=== PATIENT | male | born 1935 | race Caucasian/White ===

== ENCOUNTER 2018-09-09 17:23 | Emergency (ER) | payer MEDICARE, BC ==
[2018-09-09 17:33] VITALS: TEMP 98.3
[2018-09-09 18:28] LABS: BASOPHILS % (AUTO) 1 % (0-3); EOSINOPHILS % (AUTO) 2 % (0-9); HEMATOCRIT 46 % (39-53); HEMOGLOBIN 14.5 gm/dl (13.5-17.7); LYMPHOCYTES % (AUTO) 22.9 % (10-50); MEAN CORPUSCULAR HEMOGLOBIN 26.9 pg (27.0-32.0); MEAN CORPUSCULAR HGB CONC 31.7 gm/dl (32.0-36.0); MEAN CORPUSCULAR VOLUME 85 fL (80-100); MONOCYTES % (AUTO) 5.2 % (0-12); NEUTROPHILS % (AUTO) 69.2 % (37-80)
[2018-09-09 18:39] LABS: APPEARANCE,URINE Clear; BILIRUBIN,URINE NEGATIVE (NEGATIVE); COLOR,URINE Yellow; GLUCOSE, URINE (UA) NEGATIVE (NEGATIVE); KETONES,URINE NEGATIVE (NEGATIVE); LEUKOCYTE ESTERASE ,URINE NEGATIVE (NEGATIVE); NITRATE,URINE NEGATIVE (NEGATIVE); OCCULT BLOOD,URINE NEGATIVE (NEG-TRACE); UROBILINOGEN,URINE 0.2 (0.2-1.0 EU)
[2018-09-09 18:41] VITALS: O2SAT 96
[2018-09-09 18:48] LABS: ALBUMIN 3.7 gm/dl (3.4-5.0); BILIRUBIN,TOTAL 0.3 mg/dl (0.2-1.0); CALCIUM 8.9 mg/dl (8.5-10.1); CREATININE 1.35 mg/dl (0.80-1.30); POTASSIUM 3.7 mMol/L (3.5-5.1); TOTAL PROTEIN 7.3 gm/dl (6.4-8.2)
[2018-09-09 18:54] LABS: BACTERIA NEGATIVE (< 1+); CRYSTALS NEGATIVE (0-3 AVE/HPF); EPITHELIAL CELLS 0-3 (SQUAMOUS); RBC,URINE NEG (0-3AV/HPF); WBC,URINE 0-1 (0-5AV/HPF)
[2018-09-09 19:21] VITALS: BP 164/79; PULSE 74; RESP 18
[2018-09-09] MEDS ORDERED: ASPIRIN 81 MG CHEWABLE CTB PO ONE (19:48)
[2018-09-09] MEDS ORDERED: ASPIRIN 81 MG CHEWABLE CTB ONE (20:00)
== END 2018-09-09 20:15 | disposition home or self-care (01) | DRG 948 ==
LOC: ED 17:23
DX: R41.82 Altered mental status, unspecified (principal); G45.9 Transient cerebral ischemic attack, unspecified; I10 Essential (primary) hypertension; R29.810 Facial weakness; R47.81 Slurred speech; R40.2412 Glasgow coma scale score 13-15, at arrival to emergency department
CPT/HCPCS: 36415; 70450; 80053; 81001; 85025; 93005; 99284; 99285